=== PATIENT | female | born 1980 | race Caucasian/White ===

== ENCOUNTER 2019-02-24 08:13 | Emergency (ER) | payer MEDICAID | END 2019-02-24 08:48 | disposition home or self-care (01) | LOC: MADERS 08:13 | DX: S39.82XA Other specified injuries of lower back, initial encounter (principal); F41.9 Anxiety disorder, unspecified; X50.1XXA Overexertion from prolonged static or awkward postures, initial encounter | CPT/HCPCS: 99283 ==

== ENCOUNTER 2019-09-26 18:03 | Emergency (ER) | payer MEDICAID, SELFPAY ==
--- NOTE | 2019-09-26 18:49 | RAD ---
RADIOGRAPH CHEST 2 VIEWS: DATE: 09/26/2019 HISTORY: 39-year-old female with chest pain, acute FINDINGS: There is no airspace density, pulmonary edema, pleural effusion, pneumothorax, or cardiomegaly. IMPRESSION: No acute cardiopulmonary findings.
== END 2019-09-26 19:19 | disposition home or self-care (01) ==
LOC: MADERS 18:03
DX: S23.41XA Sprain of ribs, initial encounter (principal); F41.9 Anxiety disorder, unspecified; F17.210 Nicotine dependence, cigarettes, uncomplicated; Z79.899 Other long term (current) drug therapy; Z71.6 Tobacco abuse counseling; X50.9XXA Other and unspecified overexertion or strenuous movements or postures, initial encounter
CPT/HCPCS: 71046; 99406